=== PATIENT | male | born 1975 | race Caucasian/White ===

== ENCOUNTER → 2019-10-01 | Outpatient (CLI) | payer BC ==
[~2019-10-01] MED LIST: ACHYD1T PO; ALFU10TA6 PO; CIPR500T78 PO; HYDR-4226 PO; HYDR1TAB8 OP; MIDO10TA4; OLME20TA5 PO; OLME40TA14; ONDA-42 SL; PHEN200T27 PO; SULF1TAB38 PO; ZLP10T PO
--- NOTE | 2019-10-01 15:37 | Diagnostic Imaging Report ---
PROCEDURE: US Thyroid. TECHNIQUE: Multiple real-time grayscale images were obtained of the thyroid in various projections. INDICATION: Dysphagia. COMPARISON: None available. FINDINGS: Right thyroid lobe: The right thyroid lobe measures 5.4 x 2.0 x 1.4 cm. It demonstrates heterogeneous echogenicity. There are few scattered nodules through the right thyroid lobe. The dominant nodule is in the lower pole, is solid in nature and has some coarse calcifications within it. This nodule measures 1.6 x 1.3 x 1.0 cm. Isthmus: The thyroid isthmus is normal in echogenicity and thickness measuring 0.2. Left thyroid lobe: The left thyroid lobe measures 5.9 x 2.1 x 1.8 cm. It demonstrates heterogeneous echogenicity. There is a dominant mixed solid and cystic isoechoic nodule in the lower pole of the left thyroid measuring 2.0 x 1.6 x 1.4 cm. This is wider than tall and has well-defined margins. No internal calcifications are present. IMPRESSION: 1. There is a moderately suspicious nodule in the lower pole of the right thyroid lobe measuring up to 1.6 cm. Consider ultrasound-guided fine-needle aspiration for further assessment. 2. Mildly suspicious nodule in the lower pole of the left thyroid. Given size and imaging appearance, follow-up ultrasound of this nodule in 6-12 months is advised to assess stability. ACR TI-RADS: TR4 (4-6). TI-RADS Recommendations:TR4 - Moderately Suspicious. FNA if >1.5 cm. Follow if > 1.0 cm. Dictated by: Dictated on workstation # [id number]
== END ==
LOC: RAD 13:42
PROVIDERS: ATTEND Nurse Practitioner Family
DX: E04.1 Nontoxic single thyroid nodule (principal); R13.10 Dysphagia, unspecified
CPT/HCPCS: 76536

== ENCOUNTER → 2019-10-29 | Outpatient (CLI) | payer BC ==
[~2019-10-29] VITALS: Ht 188 cm; Wt 113.6 kg
[~2019-10-29] MED LIST changes: +LIDOCAINE 1% INJ 20 ML 20 ML VIAL INJ ONE
--- NOTE | 2019-10-29 15:11 | Diagnostic Imaging Report ---
INDICATION: Right thyroid nodule. Patient presents for fine-needle aspiration with ultrasound guidance. FINDINGS: Patient was brought to the procedure room, placed on table in the supine position. Ultrasound imaging of the right neck was performed to evaluate appropriate entry site. Right neck was then prepped and draped in the usual sterile fashion. Small amount of 1% lidocaine was utilized for local anesthesia. A total of four passes were made into the ill-defined hypoechoic partially calcified mass in the inferior right lobe of the thyroid utilizing 25-gauge needles and fine-needle aspiration technique. Hemostasis was obtained using manual compression. Patient tolerated the procedure well. IMPRESSION: Ultrasound-guided fine needle aspiration of the partially calcified hypoechoic nodule in the right lobe. Pathology results are currently pending. Dictated by: Dictated on workstation # [id number]
== END ==
LOC: RAD 12:52
PROVIDERS: ATTEND Otolaryngology Otolaryngology/Facial Plastic Surgery
DX: E04.1 Nontoxic single thyroid nodule (principal)
CPT/HCPCS: 88173; 88305